=== PATIENT | female | born 1950 | race Caucasian/White ===

== ENCOUNTER 2018-01-04 20:59 | Emergency (ER) | payer MEDICARE, OTHER ==
[2018-01-04] MEDS ORDERED: HYDROMORPHONE HCL INJ/PF 2 MG/ML AMPULE IV ONE (21:52)
[2018-01-04] MEDS ORDERED: METOCLOPRAMIDE HCL INJ/PF 10 MG/2 ML SDV IV ONE (21:52)
[2018-01-04 21:53] LABS: ABSOLUTE BASOPHILS # (AUTO) 0.2 10^3/uL (0.0-0.2); ABSOLUTE EOSINOPHILS # (AUTO) 0.3 10^3/uL (0.0-0.6); ABSOLUTE LYMPHOCYTES (AUTO) 5.3 10^3/uL (0.5-4.7); ABSOLUTE NEUT (AUTO) 4.3 10^3/uL (1.7-8.2); BASOPHILS % (AUTO) 1.5 % (0-2); EOSINOPHILS % (AUTO) 2.5 % (0-6); HEMATOCRIT 46.4 % (36.0-47.0); HEMOGLOBIN 16.2 g/dL (12.0-15.5); LYMPHOCYTES % (AUTO) 47.9 % (13-45); MEAN CORPUSCULAR HEMOGLOBIN 30.9 pg (27.0-33.4); MEAN CORPUSCULAR HGB CONC 34.9 g/dL (32.0-36.0); MEAN CORPUSCULAR VOLUME 89 fl (80-97); MONOCYTES % (AUTO) 9.3 % (3-13); PLATELET COUNT 485 10^3/uL (150-450); RED BLOOD COUNT 5.24 10^6/uL (3.72-5.28); RED CELL DISTRIBUTION WIDTH 13.5 % (11.5-14.0); SEGMENTED NEUTROPHILS % (AUTO) 38.8 % (42-78); TOTAL CELLS COUNTED % (AUTO) 100 %; WHITE BLOOD COUNT 11.1 10^3/uL (4.0-10.5)
[2018-01-04] MEDS ORDERED: CLONIDINE HCL 0.2 MG TABLET PO ONE (22:13)
--- NOTE | 2018-01-04 22:13 | ER Document Report ---
ED General - General Chief Complaint: Abdominal Pain Stated Complaint: SHORT OF BREATH AND ABDOMINAL PAIN Time Seen by Provider: 01/04/18 21:38 Mode of Arrival: Ambulatory Information source: Patient Notes: 67-year-old female who is here from [place] presents with complaints of abdominal pain. Patient notes she has a history of diabetes gastroparesis believe this may be related to her gastroparesis. She does note a benign tumor which was removed approximately 1 year ago. Patient denies any fevers or chills admits to nausea denies any significant vomiting Patient has a history of hypertension has taken her blood pressure medication already today TRAVEL OUTSIDE OF THE [place] IN LAST 30 DAYS: No - HPI Onset: Other Onset/Duration: Persistent Quality of pain: Cramping Severity: Mild Pain Level: 1 Associated symptoms: Nausea Exacerbated by: Denies Relieved by: Denies Similar symptoms previously: Yes Recently seen / treated by doctor: Yes - Related Data Allergies/Adverse Reactions: iv contrast dye Allergy (Uncoded 01/04/18 21:04) Past Medical History - Social History Smoking Status: Never Smoker Cigarette use (# per day): No Chew tobacco use (# tins/day): No Smoking Education Provided: No Frequency of alcohol use: None Drug Abuse: None Family History: Reviewed & Not Pertinent Patient has suicidal ideation: No Patient has homicidal ideation: No Renal/ Medical History: Denies: Hx Peritoneal Dialysis Review of Systems - Review of Systems Notes: REVIEW OF SYSTEMS: CONSTITUTIONAL : Denies fever, chills, or sweats. Denies recent illness. EENT: Denies eye, ear, throat, or mouth pain or symptoms. Denies nasal or sinus congestion or discharge. Denies throat, tongue, or mouth swelling or difficulty swallowing. CARDIOVASCULAR: Denies chest pain. Denies palpitations or racing or irregular heart beat. Denies ankle edema. RESPIRATORY: Denies cough, cold, or chest congestion. Denies shortness of breath, difficulty breathing, or wheezing. GASTROINTESTINAL: Admits to abdominal cramping nausea GENITOURINARY: Denies difficulty urinating, painful urination, burning, frequency, blood in urine, or discharge. FEMALE GENITOURINARY: Denies vaginal bleeding, heavy or abnormal periods, irregular periods. Denies vaginal discharge or odor. MUSCULOSKELETAL: Denies back or neck pain or stiffness. Denies joint pain or swelling. SKIN: Denies rash, lesions or sores. HEMATOLOGIC : Denies easy bruising or bleeding. LYMPHATIC: Denies swollen, enlarged glands. NEUROLOGICAL: Denies confusion or altered mental status. Denies passing out or loss of consciousness. Denies dizziness or lightheadedness. Denies headache. Denies weakness or paralysis or loss of use of either side. Denies problems with gait or speech. Denies sensory loss, numbness, or tingling. Denies seizures. PSYCHIATRIC: Denies anxiety or stress. Denies depression, suicidal ideation, or homicidal ideation. ALL OTHER SYSTEMS REVIEWED AND NEGATIVE. PHYSICAL EXAMINATION: GENERAL: Well-appearing, well-nourished and in no acute distress. HEAD: Atraumatic, normocephalic. EYES: Pupils equal round and reactive to light, extraocular movements intact, conjunctiva are normal. ENT: Nares patent, oropharynx clear without exudates. Moist mucous membranes. NECK: Normal range of motion, supple without lymphadenopathy LUNGS: Breath sounds clear to auscultation bilaterally and equal. No wheezes rales or rhonchi. HEART: Regular rate and rhythm without murmurs ABDOMEN: Soft, nontender, nondistended abdomen. No guarding, no rebound. No masses appreciated. Female : deferred Musculoskeletal: Normal range of motion, no pitting or edema. No cyanosis. NEUROLOGICAL: Cranial nerves grossly intact. Normal speech, normal gait. Normal sensory, motor exams PSYCH: Normal mood, normal affect. SKIN: Warm, Dry, normal turgor, no rashes or lesions noted. Dictation was performed using [employer] voice recognition software Physical Exam - Vital signs Vitals: Temp Pulse Resp BP Pulse Ox 98.3 F 67 18 180/73 H 97 01/04/18 21:07 01/04/18 21:07 01/04/18 21:07 01/04/18 21:07 01/04/18 21:07 Course - Re-evaluation Re-evalutation: 01/04/18 22:16 Patient's examination is quite benign, do believe this is more gastroparesis related, nonetheless I will order CT, patient is noted to have an allergy to IV contrast which is nausea - Vital Signs Vital signs: Temp Pulse Resp BP Pulse Ox 98.3 F 67 18 115/69 96 01/04/18 21:07 01/04/18 21:07 01/05/18 00:02 01/05/18 00:02 01/05/18 00:02 - Laboratory Result Diagrams: 01/04/18 21:44 01/04/18 21:44 Laboratory results interpreted by me: 01/04/18 01/04/18 21:44 21:44 WBC 11.1 H Hgb 16.2 H Plt Count 485 H Seg Neutrophils % 38.8 L Lymphocytes % 47.9 H Absolute Lymphocytes 5.3 H Potassium 3.5 L AST 73 H Lipase 22.1 L Discharge - Discharge Clinical Impression: Abdominal pain Qualifiers: Abdominal location: generalized Qualified Code(s): R10.84 - Generalized abdominal pain Condition: Stable Disposition: HOME, SELF-CARE Instructions: Abdominal Pain ([facility]) Additional Instructions: Follow up with your physician tomorrow for further care or return to the ED IMMEDIATELY if symptoms worsen or new concerns occur. If you cannot afford to follow up with your primary care physician a list of low cost clinics have been provided at the end of your discharge papers as well. Prescriptions: Dicyclomine HCl [Bentyl 20 mg Tablet] 20 mg PO QID #40 tablet Metoclopramide HCl [Reglan 10 mg Tablet] 1 - 2 tab PO Q6 #25 tablet
[2018-01-04 22:20] LABS: ALANINE AMINOTRANSFERASE 29 U/L (9-52); ALKALINE PHOSPHATASE 85 U/L (38-126); ANION GAP 12 (5-19); ASPARTATE AMINO TRANSFERASE 73 U/L (14-36); BILIRUBIN,DIRECT 0.2 mg/dL (0.0-0.4); BILIRUBIN,TOTAL 0.5 mg/dL (0.2-1.3); BLOOD UREA NITROGEN 11 mg/dL (7-20); CALCIUM 9.3 mg/dL (8.4-10.2); CARBON DIOXIDE 26 mmol/L (22-30); CHLORIDE 103 mmol/L (98-107); GLUCOSE 76 mg/dL (75-110); LIPASE 22.1 U/L (23-300); POTASSIUM 3.5 mmol/L (3.6-5.0); SODIUM 141.1 mmol/L (137-145); TOTAL PROTEIN 7.8 g/dL (6.3-8.2)
[2018-01-04] MEDS ORDERED: DIPHENHYDRAMINE HCL 50 MG/ML VIAL IV ONE (23:03)
--- NOTE | 2018-01-05 | RADIOLOGY REPORT (SQ) ---
EXAM DESCRIPTION: CT abdomen and pelvis with intravenous contrast CLINICAL HISTORY: abd pain, hx benign mass COMPARISON: None Available TECHNIQUE: Contiguous axial images of the abdomen and pelvis were obtained after the administration of intravenous contrast followed by reconstruction images.This exam was performed according to our departmental dose-optimization program, which includes automated exposure control, adjustment of the mA and/or kV according to patient size and/or use of iterative reconstruction technique. FINDINGS: Linear opacities within the lungs may represent scar versus subsegmental atelectasis. There is atherosclerosis. Spleen is absent. Small nodularity at the left upper quadrant could represent residual splenic tissue. There is a right renal cyst measuring approximately 2.4 cm. Patient is status post appendectomy. Patient is status post hysterectomy. Calcifications within the pelvis compatible with phleboliths. Stranding of the subcutaneous fat at the anterior abdominal wall could be related to prior surgery versus edema. The liver, pancreas and kidneys are otherwise within normal limits. There is no hydronephrosis or renal stones. The gallbladder is unremarkable by CT criteria. Adrenal glands are within normal limits. Aorta is of normal caliber and tapering. There is no free fluid in the abdomen or pelvis. There is no bowel obstruction. There is no stranding of the mesenteric fat to suggest an inflammatory response. IMPRESSION: No acute intra-abdominal abnormality.
[2018-01-05 00:45] VITALS: BP 113/66
== END 2018-01-05 00:47 | disposition home or self-care (01) ==
LOC: ER 20:59
DX: R10.84 Generalized abdominal pain (principal)
CPT/HCPCS: 99284; 96374; 96375; 36415; 83690; 85025; 80053; 74177; A9270; J1200; J2765; J1170

== ENCOUNTER 2018-01-17 17:11 | Emergency (ER) | payer MEDICARE, OTHER ==
--- NOTE | 2018-01-17 17:37 | ER Document Report ---
ED Medical Screen (RME) - General Chief Complaint: Breathing Difficulty Stated Complaint: EAR PAIN/FEVER Time Seen by Provider: 01/17/18 17:35 Mode of Arrival: Wheelchair Information source: Patient Notes: This is a 67-year-old female with a history of childhood polio, insulin requiring diabetes, hypertension, dyslipidemia who presents to the emergency room with generalized weakness, shortness of breath, fever, productive cough, back pain and right ear pain. TRAVEL OUTSIDE OF THE [place] IN LAST 30 DAYS: No - Related Data Allergies/Adverse Reactions: iv contrast dye Allergy (Uncoded 01/17/18 17:30) Past Medical History - Social History Chew tobacco use (# tins/day): No Frequency of alcohol use: None Drug Abuse: None Renal/ Medical History: Denies: Hx Peritoneal Dialysis Past Surgical History: Reports: Hx Abdominal Surgery - spleenectomy, Hx Appendectomy, Hx Cholecystectomy, Hx Hysterectomy, Hx Orthopedic Surgery - hip muscle repair Physical Exam - Vital signs Vitals: Temp Pulse Resp BP Pulse Ox 99.3 F 94 20 153/108 H 95 01/17/18 17:21 01/17/18 17:21 01/17/18 17:21 01/17/18 17:21 01/17/18 17:21 Course - Vital Signs Vital signs: Temp Pulse Resp BP Pulse Ox 99.3 F 94 20 153/108 H 95 01/17/18 17:21 01/17/18 17:21 01/17/18 17:21 01/17/18 17:21 01/17/18 17:21
--- NOTE | 2018-01-17 17:59 | RADIOLOGY REPORT (SQ) ---
EXAM DESCRIPTION: CHEST 2 VIEWS COMPLETED DATE/TIME: 01/17/2018 5:49 pm REASON FOR STUDY: fever, sob, prod cough COMPARISON: None. EXAM PARAMETERS: NUMBER OF VIEWS: two views TECHNIQUE: Digital Frontal and Lateral radiographic views of the chest acquired. RADIATION DOSE: NA LIMITATIONS: none FINDINGS: LUNGS AND PLEURA: No opacities, masses or pneumothorax. No pleural effusion. MEDIASTINUM AND HILAR STRUCTURES: No masses or contour abnormalities. HEART AND VASCULAR STRUCTURES: Heart normal size. No evidence for failure. BONES: No acute findings. HARDWARE: None in the chest. OTHER: No other significant finding. IMPRESSION: NO ACUTE RADIOGRAPHIC FINDING IN THE CHEST. TECHNICAL DOCUMENTATION: JOB ID: [id number] [employer]- All Rights Reserved Reading location - IP/workstation name: [email or web address]
[2018-01-17 18:11] LABS: ABSOLUTE BASOPHILS # (AUTO) 0.1 10^3/uL (0.0-0.2); ABSOLUTE EOSINOPHILS # (AUTO) 0.2 10^3/uL (0.0-0.6); ABSOLUTE LYMPHOCYTES (AUTO) 3.1 10^3/uL (0.5-4.7); ABSOLUTE MONOCYTES (AUTO) 1.1 10^3/uL (0.1-1.4); ABSOLUTE NEUT (AUTO) 11.5 10^3/uL (1.7-8.2); BASOPHILS % (AUTO) 0.9 % (0-2); EOSINOPHILS % (AUTO) 1.2 % (0-6); HEMATOCRIT 51.5 % (36.0-47.0); HEMOGLOBIN 17.6 g/dL (12.0-15.5); LYMPHOCYTES % (AUTO) 19.3 % (13-45); MEAN CORPUSCULAR HEMOGLOBIN 30.5 pg (27.0-33.4); MEAN CORPUSCULAR HGB CONC 34.2 g/dL (32.0-36.0); MEAN CORPUSCULAR VOLUME 89 fl (80-97); MONOCYTES % (AUTO) 6.6 % (3-13); PLATELET COUNT 696 10^3/uL (150-450); RED BLOOD COUNT 5.77 10^6/uL (3.72-5.28); TOTAL CELLS COUNTED % (AUTO) 100 %
[2018-01-17 18:41] LABS: ALANINE AMINOTRANSFERASE 23 U/L (9-52); ALBUMIN 4.1 g/dL (3.5-5.0); ALKALINE PHOSPHATASE 105 U/L (38-126); ANION GAP 18 (5-19); ASPARTATE AMINO TRANSFERASE 28 U/L (14-36); BILIRUBIN,DIRECT 0.3 mg/dL (0.0-0.4); BILIRUBIN,TOTAL 0.7 mg/dL (0.2-1.3); BLOOD UREA NITROGEN 12 mg/dL (7-20); CALCIUM 10.2 mg/dL (8.4-10.2); CARBON DIOXIDE 24 mmol/L (22-30); CHLORIDE 98 mmol/L (98-107); GLUCOSE 222 mg/dL (75-110); POTASSIUM 4.8 mmol/L (3.6-5.0); SODIUM 140.1 mmol/L (137-145); TOTAL PROTEIN 8.5 g/dL (6.3-8.2)
[2018-01-17] MEDS ORDERED: NORMAL SALINE 1000 ML 1,000 ML IV ONE (20:09)
[2018-01-17] MEDS ORDERED: MORPHINE SULFATE 10 MG/ML INJ IV ONE (20:09)
--- NOTE | 2018-01-17 20:11 | ER Document Report ---
ED General - General Chief Complaint: Breathing Difficulty Stated Complaint: EAR PAIN/FEVER Time Seen by Provider: 01/17/18 17:35 Mode of Arrival: Wheelchair Notes: Patient is a 67-year-old female that comes emergency department for chief complaint of sick symptoms for 1 week. She complains of sore throat, cough, and right ear pain. She also had a fever 101. She states her had the same symptoms but he resolved and she is still sick. She reports productive cough with green sputum. She denies headache, abdominal pain except for soreness from cough, chest pain unless she is coughing. She does not smoke. Past medical history includes insulin-dependent diabetes, history of polio from childhood, hypertension, hyperlipidemia, she is on chronic pain medicine but she is out of them at this time. Denies any cardiopulmonary history. She admits she has not had anything to eat today. TRAVEL OUTSIDE OF THE [place] IN LAST 30 DAYS: No - Related Data Allergies/Adverse Reactions: iv contrast dye Allergy (Uncoded 01/17/18 17:30) Past Medical History - General Information source: Patient - Social History Smoking Status: Never Smoker Chew tobacco use (# tins/day): No Frequency of alcohol use: None Drug Abuse: None Lives with: Family Family History: Reviewed & Not Pertinent Patient has suicidal ideation: No Patient has homicidal ideation: No Endocrine Medical History: Reports: Hx Diabetes Mellitus Type 2 Renal/ Medical History: Denies: Hx Peritoneal Dialysis Musculoskeletal Medical History: Reports Other - polio Past Surgical History: Reports: Hx Abdominal Surgery - spleenectomy, Hx Appendectomy, Hx Cholecystectomy, Hx Hysterectomy, Hx Orthopedic Surgery - hip muscle repair Review of Systems - Review of Systems Constitutional: See HPI EENT: See HPI Cardiovascular: No symptoms reported Respiratory: See HPI Gastrointestinal: No symptoms reported Genitourinary: No symptoms reported Female Genitourinary: No symptoms reported Musculoskeletal: No symptoms reported Skin: No symptoms reported Hematologic/Lymphatic: No symptoms reported Neurological/Psychological: No symptoms reported Physical Exam - Vital signs Vitals: Temp Pulse Resp BP Pulse Ox 99.3 F 94 20 153/108 H 95 01/17/18 17:21 01/17/18 17:21 01/17/18 17:21 01/17/18 17:21 01/17/18 17:21 - Notes Notes: GENERAL: Alert, interacts well. No acute distress. HEAD: Normocephalic, atraumatic. EYES: Pupils equal, round, and reactive to light. Extraocular movements intact. ENT: Dry mucous membranes, minimal erythema of the posterior pharynx, normal oropharyngeal exam otherwise. Mild tenderness over the sinuses especially maxillary. Left ear exam unremarkable, right ear exam shows bulging tympanic membrane with erythema, otherwise unremarkable. No mastoid tenderness. NECK: Full range of motion. Supple. Trachea midline. LUNGS: Clear to auscultation bilaterally, no wheezes, rales, or rhonchi. No respiratory distress. HEART: Regular rate and rhythm. No murmur ABDOMEN: Soft, non-tender. Non-distended. Bowel sounds present in all 4 quadrants. EXTREMITIES: Moves all 4 extremities spontaneously. Ambulates with difficulty. No edema, normal radial and dorsalis pedis pulses bilaterally. No cyanosis. BACK: no cervical, thoracic, lumbar midline tenderness. No saddle anesthesia, normal distal neurovascular exam. NEUROLOGICAL: Alert and oriented x3. Normal speech. [cranial nerves II through XII grossly intact]. PSYCH: Normal affect, normal mood. SKIN: Warm, dry, normal turgor. No rashes or lesions noted. Course - Re-evaluation Re-evalutation: Leukocytosis at 16,000 with elevation of neutrophils but no bandemia. Hemoglobin is somewhat elevated as well suggesting dehydration, patient has dry mucous membranes, was given IV fluids. After IV fluid she was able to urinate, urine is unremarkable. Chemistry shows mild hyperglycemia with no acidosis. Strep is negative. Chest x-ray is unremarkable. Lactic acid is minimally elevated at 2.7, this was rechecked after hydration and is normal. No tachycardia, hypotension, or fever. Patient is very well-appearing. I have low suspicion of sepsis, blood cultures were sent, patient was given initial antibiotics. Physical examination is consistent with right-sided otitis media, sinusitis, and upper respiratory infection/bronchitis. Discussed with patient and significant other. Because of patient's geriatric age, workup, and past medical history including limited mobility with polio and diabetes I did discuss hospital admission. This was declined. Patient states she much prefers having antibiotics at home and she will return if she worsens. Cultures pending. I discussed this in detail with patient and family, they state that they will follow-up with her provider and [facility] because this is where they will be staying, they state they will return if they worsen in any way. Patient will also follow-up for treatment of her chronic pain, she was given limited supply from here. Discharged with return precautions. - Vital Signs Vital signs: Temp Pulse Resp BP Pulse Ox 99.3 F 84 20 165/79 H 94 01/17/18 17:21 01/17/18 19:56 01/17/18 23:02 01/17/18 23:02 01/17/18 23:02 - Laboratory Result Diagrams: 01/17/18 17:56 01/17/18 17:56 Laboratory results interpreted by me: 01/17/18 01/17/18 01/17/18 17:56 17:56 17:56 WBC 16.0 H RBC 5.77 H Hgb 17.6 H Hct 51.5 H Plt Count 696 H Absolute Neutrophils 11.5 H Glucose 222 H Lactic Acid 2.7 H Total Protein 8.5 H Discharge - Discharge Clinical Impression: Productive cough, Weakness Otitis media Qualifiers: Otitis media type: suppurative Chronicity: acute Laterality: right Recurrence: not specified as recurrent Spontaneous tympanic membrane rupture: without spontaneous rupture Qualified Code(s): H66.001 - Acute suppurative otitis media without spontaneous rupture of ear drum, right ear Sinusitis Qualifiers: Sinusitis location: maxillary Chronicity: acute Recurrence: not specified as recurrent Qualified Code(s): J01.00 - Acute maxillary sinusitis, unspecified Condition: Stable Disposition: HOME, SELF-CARE Additional Instructions: Your chest x-ray does not show pneumonia. Your evaluation and workup are most consistent with ear infection, sinus infection, and bronchitis. Take antibiotics as prescribed. Rest. Take medication for pain as prescribed if needed, follow-up with primary care closely within the next several days for additional evaluation and management. Return if you worsen including spiking fever, difficulty breathing, or any other concerning or worsening symptoms. Prescriptions: Oxycodone HCl/Acetaminophen [Percocet 10-325 Mg Tablet] 1 each PO Q4HP PRN #25 tablet PRN Reason: Clarithromycin [Biaxin 250 mg Tablet] 1 tab PO Q12 #14 tab
[2018-01-17] MEDS ORDERED: CLARITHROMYCIN 250 MG TABLET PO ONE ×2 (21:26→23:00)
[2018-01-17] MEDS ORDERED: CEFTRIAXONE 1 GM/D5W RTU 1 GM/50 ML RTUPB IV ONE (22:07)
[2018-01-17] MEDS ORDERED: CEFTRIAXONE INJ 1000 MG VIAL ONE (22:12)
[2018-01-17 23:05] LABS: APPEARANCE,URINE SLIGHTLY-CLOUDY; BILIRUBIN,URINE NEGATIVE (NEGATIVE); COLOR,URINE YELLOW; GLUCOSE, URINE NEGATIVE (NEGATIVE); KETONES,URINE NEGATIVE (NEGATIVE); LEUKOCYTE ESTERASE,URINE NEGATIVE (NEGATIVE); NITRITE,URINE NEGATIVE (NEGATIVE); PROTEIN,URINE NEGATIVE (NEGATIVE); URINE SPECIFIC GRAVITY 1.017; UROBILINOGEN,URINE NEGATIVE mg/dL (<2.0)
[2018-01-17] MEDS ORDERED: HYDROCODONE/ACETAMINOPHEN 5-325 MG (6 TAB/ER DISP) PO PRN (23:22)
[2018-01-18 00:15] VITALS: BP 165/79
== END 2018-01-18 00:15 | disposition home or self-care (01) ==
LOC: ER 17:11
DX: H66.001 Acute suppurative otitis media without spontaneous rupture of ear drum, right ear (principal); J01.00 Acute maxillary sinusitis, unspecified; J02.9 Acute pharyngitis, unspecified; H92.01 Otalgia, right ear; R06.00 Dyspnea, unspecified; R50.9 Fever, unspecified; E11.9 Type 2 diabetes mellitus without complications; Z90.49 Acquired absence of other specified parts of digestive tract; Z90.710 Acquired absence of both cervix and uterus
CPT/HCPCS: 99285; 96361; 96374; 96375; 36415; 87040; 87070; 87086; 87880; 85025; 87088; 80053; 81001; 87186; 83605; 71046; J2270; J0696; J7030; A9270